=== PATIENT | male | born 1975 | race Caucasian/White ===

== ENCOUNTER → 2024-01-10 07:07 | Outpatient (REF) | payer OTHER, SELFPAY | LOC: DHCBC/DCA 07:07 | PROVIDERS: ATTENDING PHYSICIAN Internal Medicine Interventional Cardiology; FAMILY PHYSICIAN Internal Medicine | DX: I25.2 Old myocardial infarction (principal) | CPT/HCPCS: 78452; 93017; A9500 ==

== ENCOUNTER 2024-05-28 18:59 | Outpatient (RCR) | payer OTHER, SELFPAY | END 2024-05-28 23:59 | disposition home or self-care (01) | LOC: RPT 18:59 | PROVIDERS: ATTENDING PHYSICIAN Internal Medicine | DX: M54.50 Low back pain, unspecified (principal); Z73.6 Limitation of activities due to disability; X58.XXXD Exposure to other specified factors, subsequent encounter | CPT/HCPCS: 97010; 97110; 97162; 97530 ==

== ENCOUNTER 2024-06-04 19:01 | Outpatient (RCR) | payer OTHER, SELFPAY | END 2024-06-05 08:20 | disposition home or self-care (01) | LOC: RPT 19:01 | PROVIDERS: ATTENDING PHYSICIAN Internal Medicine | DX: M54.50 Low back pain, unspecified (principal); Z73.6 Limitation of activities due to disability; X58.XXXD Exposure to other specified factors, subsequent encounter | CPT/HCPCS: 97110 ==